=== PATIENT | male | born 1940 | race Two or more races ===

== ENCOUNTER 2017-01-06 18:38 | Inpatient (IN) | payer MEDICARE, MEDICAID ==
[~2017-01-06] VITALS: Ht 149.9 cm; Wt 59.9 kg
[2017-01-06] MEDS ORDERED: AMLO5TAB2 PO (18:49)
[2017-01-06] MEDS ORDERED: ATEN25TA PO (18:49)
[2017-01-06] MEDS ORDERED: ASPI325T2 PO (18:49)
[2017-01-06] MEDS ORDERED: QUET25TA PO (18:49)
[2017-01-06] MEDS ORDERED: SERT25TA5 PO (18:49)
[2017-01-06] MEDS ORDERED: MECO10002 SL (18:49)
[2017-01-06] MEDS ORDERED: FAMO20TA8 PO (18:49)
[2017-01-06] MEDS ORDERED: PRAV20TA4 PO (18:49)
[2017-01-06 19:17] LABS: BASOPHILS % (AUTO) 0.4 % (0.0-2.0); DIFF TOTAL % 100 %; EOSINOPHILS # (AUTO) 0.1 /CMM (0.0-0.7); EOSINOPHILS % (AUTO) 2.2 % (0.0-6.0); HEMATOCRIT 47 % (39-51); HEMOGLOBIN 15.4 g/dL (13.5-17.5); LYMPHOCYTES # (AUTO) 1.3 /CMM (0.8-4.8); LYMPHOCYTES % (AUTO) 24.8 % (20.0-44.0); MEAN CORPUSCULAR HEMOGLOBIN 29 PG (26.0-33.0); MEAN CORPUSCULAR HGB CONC 33 g/dl (31.0-36.0); MEAN CORPUSCULAR VOLUME 88 fL (80-96); MONOCYTES # (AUTO) 0.6 /CMM (0.1-1.30); MONOCYTES % (AUTO) 11.8 % (2.0-12.0); NEUTROPHILS # (AUTO) 3.2 /CMM (1.8-8.9); NEUTROPHILS % (AUTO) 60.8 % (43.0-81.0); PLATELET COUNT (AUTO) 219 /CMM (150-450); RED BLOOD CELL COUNT(AUTO) 5.33 MIL/uL (4.5-6.0); WHITE BLOOD COUNT (AUTO) 5.2 K/uL (4.3-11.0)
[2017-01-06 19:29] LABS: ANION GAP 13 (5-14); CALCIUM, SERUM 9.2 mg/dL (8.5-10.1); CARBON DIOXIDE 26 mmol/L (21-32); CHLORIDE 103 mmol/L (98-107); CREATININE 1.3 mg/dL (0.6-1.3); GLUCOSE 118 mg/dL (74-106); POTASSIUM 4.6 mmol/L (3.5-5.1); SODIUM SERUM 138 mmol/L (136-145); UREA NITROGEN, BLOOD 26 mg/dL (7-18)
[2017-01-06 19:32] LABS: ACETAMINOPHEN 0 ug/ml (10-30); ALANINE AMINOTRANSFERASE 18 U/L (12-78); ALBUMIN 3.6 g/dL (3.4-5.0); ASPARTATE AMINOTRANSFERASE 19 U/L (15-37); BILIRUBIN,DIRECT 0.1 mg/dL (0.0-0.2); BILIRUBIN,TOTAL 0.4 mg/dL (0.2-1.0); INDIRECT BILIRUBIN 0.3 mg/dL (0.0-1.1); SALICYLATE 1.8 mg/dL (2.8-20.0); TOTAL PROTEIN, SERUM 8.2 g/dL (6.4-8.2)
[2017-01-06] MEDS ORDERED: IV NS 0.9% 500 ML BAG IV ONE (20:00)
[2017-01-06] MEDS ORDERED: IV NS 0.9% 500 ML IV ONE (20:18)
[2017-01-06] MEDS ORDERED: IV SET PRIMARY 1 EA INFUS.SET MC ONE (20:18)
[2017-01-06 21:29] LABS: KETONES,URINE Negative (NEGATIVE); LEUKOCYTE ESTERASE ,URINE Trace (NEGATIVE)
[2017-01-06 21:34] LABS: ADD UA MICROSCOPIC YES
[2017-01-06 21:35] LABS: CANNABINOID, URINE NEGATIVE (NEGATIVE); PHENCYCLIDINE SCREEN,URINE NEGATIVE (NEGATIVE)
[2017-01-06 21:46] LABS: RBC,URINE TOO NUMEROUS TO COUN /HPF (0-2)
[2017-01-06 21:50] LABS: ADD URINE CULTURE YES
[2017-01-06] MEDS ORDERED: ACETAMINOPHEN 325 MG TABLET PO PRN (22:30)
[2017-01-06] MEDS ORDERED: ZOLPIDEM TARTRATE 10 MG TABLET PO PRN (22:30)
[2017-01-06] MEDS ORDERED: MAG HYDROX/AL HYDROX/SIMETH 30 ML UDC PO PRN (22:30)
[2017-01-06] MEDS ORDERED: MAGNESIUM HYDROXIDE 30 ML UDC PO PRN (22:30)
[2017-01-06 23:36] VITALS: BP 159/89
[2017-01-07 07:49] LABS: CREATININE 1.2 mg/dL (0.6-1.3)
[2017-01-07 08:00] VITALS: BP 148/74
[2017-01-07] MEDS ORDERED: CYAN500T4 PO (08:22)
[2017-01-07 16:00] VITALS: BP 151/65
[2017-01-07 20:00] VITALS: BP 121/68
[2017-01-07] MEDS ORDERED: NITROFURANTOIN/NITROFURAN MAC 100 MG CAPSULE PO SCH (21:00)
[2017-01-07] MEDS: risperiDONE 1 MG TABLET PO SCH (21:15)
[2017-01-08 08:00] VITALS: BP 134/70
[2017-01-08] MEDS ORDERED: PRAVASTATIN SODIUM 20 MG TABLET PO SCH (09:00)
[2017-01-08] MEDS: risperiDONE 1 MG TABLET PO SCH ×2 (09:00→20:45)
[2017-01-08] MEDS: ASPIRIN 325 MG TABLET PO SCH (09:40)
[2017-01-08] MEDS: AMLODIPINE BESYLATE 5 MG TABLET PO SCH (09:41)
[2017-01-08] MEDS: CYANOCOBALAMIN 500 MCG TABLET PO SCH (09:41)
[2017-01-08] MEDS: ATORVASTATIN 10 MG TABLET PO SCH (09:41)
[2017-01-08] MEDS: SERTRALINE HCL 25 MG TABLET PO SCH (09:41)
[2017-01-08] MEDS: FAMOTIDINE (20 MG) 20 MG TABLET PO SCH ×2 (09:41→10:27)
[2017-01-08] MEDS: ATENOLOL 25 MG TABLET PO SCH (09:42)
[2017-01-08] MEDS: LORAZEPAM 0.5 MG TABLET PO PRN ×2 (09:53→20:45)
[2017-01-08 16:00] VITALS: BP 148/80
[2017-01-08 20:00] VITALS: BP 126/83
[2017-01-09 07:43] LABS: BASOPHILS % (AUTO) 0.3 % (0.0-2.0); DIFF TOTAL % 100 %; EOSINOPHILS # (AUTO) 0.1 /CMM (0.0-0.7); EOSINOPHILS % (AUTO) 1.8 % (0.0-6.0); HEMATOCRIT 45 % (39-51); HEMOGLOBIN 14.9 g/dL (13.5-17.5); LYMPHOCYTES # (AUTO) 0.7 /CMM (0.8-4.8); LYMPHOCYTES % (AUTO) 10.6 % (20.0-44.0); MEAN CORPUSCULAR HEMOGLOBIN 29 PG (26.0-33.0); MEAN CORPUSCULAR HGB CONC 33 g/dl (31.0-36.0); MEAN CORPUSCULAR VOLUME 87 fL (80-96); MONOCYTES # (AUTO) 0.5 /CMM (0.1-1.30); MONOCYTES % (AUTO) 7.5 % (2.0-12.0); NEUTROPHILS # (AUTO) 5.4 /CMM (1.8-8.9); NEUTROPHILS % (AUTO) 79.8 % (43.0-81.0); PLATELET COUNT (AUTO) 218 /CMM (150-450); RED BLOOD CELL COUNT(AUTO) 5.15 MIL/uL (4.5-6.0); WHITE BLOOD COUNT (AUTO) 6.8 K/uL (4.3-11.0)
[2017-01-09 08:00] VITALS: BP 143/71
[2017-01-09 08:57] LABS: CALCIUM, SERUM 9.4 mg/dL (8.5-10.1); CREATININE 1.2 mg/dL (0.6-1.3); PHOSPHORUS 3.4 mg/dL (2.5-4.9); POTASSIUM 4.5 mmol/L (3.5-5.1)
[2017-01-09] MEDS: CYANOCOBALAMIN 500 MCG TABLET PO SCH (09:00)
[2017-01-09] MEDS: ATORVASTATIN 10 MG TABLET PO SCH (09:00)
[2017-01-09] MEDS: ATENOLOL 25 MG TABLET PO SCH (09:00)
[2017-01-09] MEDS: FAMOTIDINE (20 MG) 20 MG TABLET PO SCH ×2 (09:00→16:47)
[2017-01-09] MEDS: AMLODIPINE BESYLATE 5 MG TABLET PO SCH (09:00)
[2017-01-09] MEDS: SERTRALINE HCL 25 MG TABLET PO SCH (09:00)
[2017-01-09] MEDS: ASPIRIN 325 MG TABLET PO SCH (09:00)
[2017-01-09 16:00] VITALS: BP 115/72
[2017-01-09 20:00] VITALS: BP 137/82
[2017-01-09] MEDS: risperiDONE 1 MG TABLET PO SCH (21:02)
[2017-01-10 08:51] VITALS: BP 130/70
[2017-01-10] MEDS: AMLODIPINE BESYLATE 5 MG TABLET PO SCH (09:33)
[2017-01-10] MEDS: CYANOCOBALAMIN 500 MCG TABLET PO SCH (09:33)
[2017-01-10] MEDS: FAMOTIDINE (20 MG) 20 MG TABLET PO SCH ×2 (09:33→16:21)
[2017-01-10] MEDS: ASPIRIN 325 MG TABLET PO SCH (09:33)
[2017-01-10] MEDS: ATENOLOL 25 MG TABLET PO SCH (09:33)
[2017-01-10] MEDS: SERTRALINE HCL 25 MG TABLET PO SCH (09:34)
[2017-01-10] MEDS: ATORVASTATIN 10 MG TABLET PO SCH (09:34)
[2017-01-10] MEDS: LORAZEPAM 0.5 MG TABLET PO PRN (16:21)
[2017-01-10 16:48] VITALS: BP 132/67
[2017-01-10 19:38] VITALS: BP 129/74
[2017-01-10] MEDS: risperiDONE 1 MG TABLET PO SCH (22:23)
[2017-01-11 08:00] VITALS: BP 129/73
[2017-01-11] MEDS: FAMOTIDINE (20 MG) 20 MG TABLET PO SCH ×2 (08:37→17:47)
[2017-01-11] MEDS: AMLODIPINE BESYLATE 5 MG TABLET PO SCH (08:38)
[2017-01-11] MEDS: CYANOCOBALAMIN 500 MCG TABLET PO SCH (08:38)
[2017-01-11] MEDS: SERTRALINE HCL 25 MG TABLET PO SCH (08:38)
[2017-01-11] MEDS: ATENOLOL 25 MG TABLET PO SCH (08:39)
[2017-01-11] MEDS: ATORVASTATIN 10 MG TABLET PO SCH (08:39)
[2017-01-11] MEDS: ASPIRIN 325 MG TABLET PO SCH (08:39)
[2017-01-11 16:11] VITALS: BP 125/61
[2017-01-11 20:00] VITALS: BP 131/74
[2017-01-11] MEDS: risperiDONE 1 MG TABLET PO SCH (21:16)
[2017-01-12 08:00] VITALS: BP 135/78
[2017-01-12] MEDS: CYANOCOBALAMIN 500 MCG TABLET PO SCH (08:29)
[2017-01-12] MEDS: AMLODIPINE BESYLATE 5 MG TABLET PO SCH (08:30)
[2017-01-12] MEDS: SERTRALINE HCL 25 MG TABLET PO SCH (08:31)
[2017-01-12] MEDS: FAMOTIDINE (20 MG) 20 MG TABLET PO SCH ×2 (08:31→17:54)
[2017-01-12] MEDS: ASPIRIN 325 MG TABLET PO SCH (08:32)
[2017-01-12] MEDS: ATENOLOL 25 MG TABLET PO SCH (08:32)
[2017-01-12] MEDS: ATORVASTATIN 10 MG TABLET PO SCH (08:32)
[2017-01-12 16:00] VITALS: BP 125/69
[2017-01-12 20:04] VITALS: BP_SYST 104
[2017-01-12 20:10] VITALS: BP 104/50
[2017-01-12] MEDS: risperiDONE 1 MG TABLET PO SCH (21:34)
[2017-01-13 08:00] VITALS: BP 150/78
[2017-01-13] MEDS: ATORVASTATIN 10 MG TABLET PO SCH (09:28)
[2017-01-13] MEDS: CYANOCOBALAMIN 500 MCG TABLET PO SCH (09:29)
[2017-01-13] MEDS: ATENOLOL 25 MG TABLET PO SCH (09:29)
[2017-01-13] MEDS: SERTRALINE HCL 25 MG TABLET PO SCH (09:30)
[2017-01-13] MEDS: ASPIRIN 325 MG TABLET PO SCH (09:30)
[2017-01-13] MEDS: FAMOTIDINE (20 MG) 20 MG TABLET PO SCH ×2 (09:30→17:43)
[2017-01-13] MEDS: AMLODIPINE BESYLATE 5 MG TABLET PO SCH (09:30)
[2017-01-13 16:00] VITALS: BP 113/59
[2017-01-13 19:55] VITALS: BP 142/71
[2017-01-13] MEDS: risperiDONE 1 MG TABLET PO SCH (21:38)
[2017-01-14 08:51] VITALS: BP 122/71
[2017-01-14] MEDS: ASPIRIN 325 MG TABLET PO SCH (09:00)
[2017-01-14] MEDS: FAMOTIDINE (20 MG) 20 MG TABLET PO SCH ×2 (09:00→17:36)
[2017-01-14] MEDS: CYANOCOBALAMIN 500 MCG TABLET PO SCH (09:00)
[2017-01-14] MEDS: ATENOLOL 25 MG TABLET PO SCH (09:01)
[2017-01-14] MEDS: SERTRALINE HCL 25 MG TABLET PO SCH (09:01)
[2017-01-14] MEDS: ATORVASTATIN 10 MG TABLET PO SCH (09:01)
[2017-01-14] MEDS: AMLODIPINE BESYLATE 5 MG TABLET PO SCH (09:01)
[2017-01-14 16:01] VITALS: BP 118/60
[2017-01-14 20:00] VITALS: BP 122/73
[2017-01-14] MEDS: risperiDONE 1 MG TABLET PO SCH (21:20)
[2017-01-15 08:00] VITALS: BP 125/76
[2017-01-15] MEDS: SERTRALINE HCL 25 MG TABLET PO SCH (08:43)
[2017-01-15] MEDS: ATORVASTATIN 10 MG TABLET PO SCH (08:43)
[2017-01-15] MEDS: AMLODIPINE BESYLATE 5 MG TABLET PO SCH (08:43)
[2017-01-15] MEDS: FAMOTIDINE (20 MG) 20 MG TABLET PO SCH (08:43)
[2017-01-15] MEDS: ASPIRIN 325 MG TABLET PO SCH (08:43)
[2017-01-15 08:44] VITALS: BP 125/76
[2017-01-15] MEDS: CYANOCOBALAMIN 500 MCG TABLET PO SCH (08:44)
[2017-01-15] MEDS: ATENOLOL 25 MG TABLET PO SCH (08:44)
== END 2017-01-15 13:30 | DRG 885 ==
LOC: ER 18:42 → GPS 21:47
PROVIDERS: ADMIT Psychiatry & Neurology Psychiatry; ATTEND Internal Medicine Nephrology
DX: F29 Unspecified psychosis not due to a substance or known physiological condition (principal); F02.81 Dementia in other diseases classified elsewhere, unspecified severity, with behavioral disturbance; G30.9 Alzheimer's disease, unspecified; E11.9 Type 2 diabetes mellitus without complications; E78.5 Hyperlipidemia, unspecified; F17.200 Nicotine dependence, unspecified, uncomplicated; I10 Essential (primary) hypertension; I48.91 Unspecified atrial fibrillation; R31.9 Hematuria, unspecified; Z86.73 Personal history of transient ischemic attack (TIA), and cerebral infarction without residual deficits
CPT/HCPCS: 36415; 80048-TC; 80061-TC; 80076-TC; 80305; 81000-TC; 82565-TC; 82962-TC; 83735-TC; 84100-TC; 84443-TC; 85025-TC; 87081-TC; 87086-TC; A4606; G0480; G6039-TC; J7040; Z7610